=== PATIENT | male | born 1945 | race Caucasian/White ===

== ENCOUNTER 2016-09-08 11:59 | Emergency (ER) | payer MEDICARE, BC | END 2016-09-08 18:56 | disposition home or self-care (01) | LOC: ER 11:59 | DX: M54.32 Sciatica, left side (principal); M54.5 Low back pain; R44.9 Unspecified symptoms and signs involving general sensations and perceptions; Z79.899 Other long term (current) drug therapy; Z79.82 Long term (current) use of aspirin; Z87.891 Personal history of nicotine dependence | CPT/HCPCS: 36415; 72100; 80053; 81003; 83690; 85025 ==